=== PATIENT | female | born 1980 | race Caucasian/White ===

== ENCOUNTER 2023-06-29 18:08 | Emergency (ER) | payer OTHER ==
[~2023-06-29] VITALS: Ht 172.7 cm; Wt 57.6 kg
[2023-06-29 18:10] VITALS: TEMP 98.3
[2023-06-29 18:50] LABS: BASOPHILS % (AUTO) 0.3 % (0.0-2.0); EOSINOPHILS % (AUTO) 0.4 % (0.0-6.0); HEMATOCRIT 34 % (33-45); LYMPHOCYTES % (AUTO) 20.9 % (20.0-44.0); MEAN CORPUSCULAR HEMOGLOBIN 29 PG (26.0-33.0); MEAN CORPUSCULAR HGB CONC 33 g/dl (31.0-36.0); MEAN CORPUSCULAR VOLUME 90 fL (82-100); MONOCYTES # (AUTO) 0.6 K/uL (0.1-1.30); MONOCYTES % (AUTO) 6.2 % (2.0-12.0); NEUTROPHILS % (AUTO) 72.2 % (43.0-81.0); PLATELET COUNT (AUTO) 319 K/uL (150-450); RED BLOOD CELL COUNT(AUTO) 3.74 MIL/uL (4.0-5.2); RED CELL DISTRIBUTION WIDTH 14.4 % (11.5-15.0); WHITE BLOOD COUNT (AUTO) 9.6 K/uL (4.3-11.0)
[2023-06-29 19:03] LABS: CALCIUM, SERUM 7.5 mg/dL (8.5-10.1); CARBON DIOXIDE 28 mmol/L (21-32); CHLORIDE 107 mmol/L (98-107); CREATININE 1.1 mg/dL (0.6-1.3); GLUCOSE 90 mg/dL (74-106); POTASSIUM 3.4 mmol/L (3.5-5.1); SODIUM SERUM 140 mmol/L (136-145); UREA NITROGEN, BLOOD 11 mg/dL (7-18)
[2023-06-29 19:23] LABS: LACTIC ACID 1.1 mmol/L (0.4-2.0)
[2023-06-29] MEDS ORDERED: KETOROLAC TROMETHAMINE 15 MG/ML VIAL ONE (19:24)
[2023-06-29] MEDS ORDERED: LORAZEPAM INJ 2 MG/ML VIAL ONE (19:25)
[2023-06-29 19:30] LABS: PREGNANCY TEST SERUM QUAN 0 mIU/mL (0-6)
[2023-06-29 19:31] LABS: ALCOHOL, BLOOD < 3 mg/dL (0-10)
[2023-06-29] MEDS: KETOROLAC TROMETHAMINE 15 MG/ML VIAL IV ONE (19:42)
[2023-06-29] MEDS: IV NS 0.9% 500 ML BAG IV ONE (19:42)
[2023-06-29] MEDS: LORAZEPAM INJ 2 MG/ML VIAL IV ONE (19:45)
[2023-06-29 19:47] LABS: MAGNESIUM 1.6 mg/dL (1.8-2.4)
[2023-06-29] MEDS: CALCIUM GLUCONATE 500 MG TABLET PO SCH (20:00)
[2023-06-29 20:01] LABS: THYROID STIMULATING HORMONE 2.048 uIU/mL (0.358-3.74)
[2023-06-29 20:13] LABS: PREGNANCY TEST URINE QUAL NEGATIVE (NEGATIVE)
[2023-06-29 20:24] LABS: AMPHETAMINE, URINE NEGATIVE (NEGATIVE); BARBITURATE, URINE NEGATIVE (NEGATIVE); BENZODIAZEPINE, URINE NEGATIVE (NEGATIVE); CANNABINOID, URINE NEGATIVE (NEGATIVE); COCCAINE, URINE NEGATIVE (NEGATIVE); OPIATE, URINE NEGATIVE (NEGATIVE); PHENCYCLIDINE SCREEN,URINE NEGATIVE (NEGATIVE)
[2023-06-29] MEDS: CALCITRIOL 0.25 MCG CAPSULE PO SCH (20:37)
[2023-06-29 21:20] LABS: APPEARANCE,URINE CLEAR (CLEAR); BILIRUBIN,URINE 1+ (NEGATIVE); BLOOD, URINE NEGATIVE Ery/uL (NEGATIVE); COLOR,URINE YELLOW (YELLOW); KETONES,URINE TRACE mg/dL (NEGATIVE); LEUKOCYTE ESTERASE ,URINE NEGATIVE (NEGATIVE); NITRITE, URINE NEGATIVE (NEGATIVE); PH,URINE 5.5 (5.0-8.0); PROTEIN,URINE NEGATIVE (NEGATIVE); UGLUCOSE NEGATIVE (NEGATIVE); UROBILINOGEN,URINE 0.2 EU/dL (0.2)
[2023-06-29 21:41] LABS: ADD URINE CULTURE NO; BACTERIA,URINE None seen /HPF (None Seen); CALCIUM OXALATE CRYSTALS,UR Many /HPF (None Seen); RBC,URINE 0-2 /HPF (0-2); SQUAMOUS EPITHELIAL CELL,UR 0-2 /HPF (None Seen); WBC,URINE 0-2 /HPF (0-3)
[2023-06-29 22:31] VITALS: BP 110/71; O2SAT 100
== END 2023-06-29 22:32 | disposition home or self-care (01) ==
LOC: ER 18:14
DX: S00.83XA Contusion of other part of head, initial encounter (principal); R55 Syncope and collapse; M54.2 Cervicalgia; R10.2 Pelvic and perineal pain; G43.909 Migraine, unspecified, not intractable, without status migrainosus; F41.9 Anxiety disorder, unspecified; G89.29 Other chronic pain; W18.30XA Fall on same level, unspecified, initial encounter; Y93.89 Activity, other specified; Y92.89 Other specified places as the place of occurrence of the external cause; Y99.8 Other external cause status
CPT/HCPCS: 99285; 96374; 96361; 96375; 93005; 72125; 70450; 70486; 85025; 80048; 87040; 83605; 83735; 84703; 81001; 36415; 84443; 84484; 84702; 80320; 80307; J2060; J7040; J1885; G0480

== ENCOUNTER 2025-01-05 18:10 | Emergency (ER) | payer OTHER ==
[~2025-01-05] VITALS: Ht 172.7 cm; Wt 58.5 kg
[2025-01-05 18:36] VITALS: BP 120/80; TEMP 98.3; O2SAT 100
== END 2025-01-05 20:02 | disposition left against medical advice (07) ==
LOC: ER 18:10
DX: Z53.21 Procedure and treatment not carried out due to patient leaving prior to being seen by health care provider (principal)